=== PATIENT | male | born 1980 | race Caucasian/White ===

== ENCOUNTER 2021-11-20 07:44 | Emergency (ER) | payer MEDICAID ==
[~2021-11-20] VITALS: Ht 172.7 cm; Wt 104.5 kg
[2021-11-20 10:22] LABS: BASOPHILS % (AUTO) 0.4 % (0.0-2.0); EOSINOPHILS % (AUTO) 1.6 % (1.0-6.0); HEMATOCRIT 48.4 % (41-53); LYMPHOCYTES # (AUTO) 0.9 K/uL (1.0-4.8); LYMPHOCYTES % (AUTO) 10.6 % (22.0-44.0); MEAN CORPUSCULAR VOLUME 85 fL (80-100); MONOCYTES # (AUTO) 0.5 K/uL (0.1-1.0); MONOCYTES % (AUTO) 6.3 % (2.0-9.0); NEUTROPHILS # (AUTO) 6.9 K/uL (1.8-7.7); NEUTROPHILS % (AUTO) 81.1 % (40.0-70.0); PLATELET COUNT (AUTO) 254 K/uL (150-450); RED BLOOD CELL COUNT(AUTO) 5.71 MIL/uL (4.50-5.90); RED CELL DISTRIBUTION WIDTH 13.9 % (11.5-14.5)
[2021-11-20 10:26] LABS: ANION GAP 1 mmol/L (8-16); CALCIUM, TOTAL 8.8 mg/dL (8.8-10.5); CARBON DIOXIDE 33 mmol/L (22-29); CHLORIDE 103 mmol/L (98-107); CREATININE 1.18 mg/dL (0.60-1.30); GLUCOSE,RANDOM 121 mg/dL (70-110); SODIUM SERUM 137 mmol/L (136-145); UREA NITROGEN, BLOOD 12 mg/dL (7-18)
[2021-11-20 10:32] LABS: GLOMERULAR FILTR. RATE CALC > 60 mL/min (>60)
[2021-11-20 10:34] LABS: ALANINE AMINOTRANSFERASE 28 U/L (12-78); ALKALINE PHOSPHATASE 94 U/L (46-116); ASPARTATE AMINOTRANSFERASE 13 U/L (15-37); BILIRUBIN,TOTAL 0.7 mg/dL (0.1-1.0)
[2021-11-20 10:35] LABS: ALBUMIN 3.9 g/dL (3.4-5.0); TOTAL PROTEIN, SERUM 7.3 g/dL (6.4-8.2)
[2021-11-20] MEDS ORDERED: SODIUM CHLORIDE 0.9% 500 ML IV ONE (11:00)
[2021-11-20 12:45] VITALS: BP 136/82
== END 2021-11-20 12:57 | disposition home or self-care (01) ==
LOC: EMS 07:51
DX: R11.2 Nausea with vomiting, unspecified (principal); F12.90 Cannabis use, unspecified, uncomplicated; Z98.890 Other specified postprocedural states
CPT/HCPCS: 99283; 96360; 80053; 85025; 36415; J7040

== ENCOUNTER 2022-07-11 01:19 | Emergency (ER) | payer MEDICAID, OTHER ==
[~2022-07-11] VITALS: Ht 172.7 cm; Wt 113.6 kg
[2022-07-11 01:22] VITALS: BP 133/80
[2022-07-11] MEDS ORDERED: CEPHALEXIN MONOHYDRATE 500 MG CAPSULE PO ONE (01:45)
[2022-07-11] MEDS ORDERED: SULFAMETHOX/TRIMETH DS 800-160 MG/TABLET PO ONE (01:45)
[2022-07-11] MEDS ORDERED: CEPH-558 PO (01:54)
[2022-07-11] MEDS ORDERED: SULF-261 PO (01:54)
== END 2022-07-11 02:13 | disposition home or self-care (01) ==
LOC: EMS 01:19
DX: L03.317 Cellulitis of buttock (principal); F15.90 Other stimulant use, unspecified, uncomplicated; Z98.890 Other specified postprocedural states
CPT/HCPCS: 99283

== ENCOUNTER 2022-07-13 11:36 | Emergency (ER) | payer MEDICAID ==
[~2022-07-13] VITALS: Ht 172.7 cm; Wt 113.6 kg
[~2022-07-13 11:36] MED LIST: CEPH-558 PO; SULF-261 PO
[2022-07-13] MEDS ORDERED: LIDOCAINE 1% 10 ML VIAL SQ ONE (12:30)
[2022-07-13] MEDS ORDERED: LIDOCAINE/PF 1% 2 ML VIAL IM ONE (14:15)
[2022-07-13] MEDS ORDERED: CefTRIAXone SODIUM 1 GM/VIAL IM ONE (14:15)
[2022-07-13] MEDS ORDERED: PERCT PO (14:30)
[2022-07-13 14:40] VITALS: BP 130/86
== END 2022-07-13 14:43 | disposition home or self-care (01) ==
LOC: EMS 11:42
DX: L02.31 Cutaneous abscess of buttock (principal); F19.90 Other psychoactive substance use, unspecified, uncomplicated
CPT/HCPCS: 99283; 10060; 96372; J0696; J3490 ×2

== ENCOUNTER 2022-07-16 16:29 | Emergency (ER) | payer MEDICAID ==
[~2022-07-16] VITALS: Ht 172.7 cm; Wt 113.6 kg
[~2022-07-16 16:29] MED LIST changes: +PERCT PO
[2022-07-16 19:24] VITALS: BP 150/102
== END 2022-07-16 19:59 | disposition home or self-care (01) ==
LOC: EMS 16:32
DX: L03.317 Cellulitis of buttock (principal); F15.90 Other stimulant use, unspecified, uncomplicated; Z98.890 Other specified postprocedural states
CPT/HCPCS: 99283; Z7502

== ENCOUNTER 2022-07-18 20:45 | Emergency (ER) | payer MEDICAID ==
[~2022-07-18] VITALS: Ht 172.7 cm; Wt 113.6 kg
[2022-07-18 22:16] VITALS: BP 145/90
== END 2022-07-18 23:12 | disposition home or self-care (01) ==
LOC: EMS 20:49
DX: L02.31 Cutaneous abscess of buttock (principal); Z48.00 Encounter for change or removal of nonsurgical wound dressing
CPT/HCPCS: 99281; Z7502